=== PATIENT | male | born 2000 | race Caucasian/White ===

== ENCOUNTER 2021-12-26 22:30 | Emergency (ER) | payer BC ==
[2021-12-26] MEDS ORDERED: Famotidine 20 MG TAB ONE (22:59)
[2021-12-26] MEDS ORDERED: predniSONE 20 MG TAB ONE (22:59)
== END 2021-12-27 02:01 | disposition home or self-care (01) ==
LOC: MADERS 22:30
DX: T78.1XXA Other adverse food reactions, not elsewhere classified, initial encounter (principal); L50.9 Urticaria, unspecified
CPT/HCPCS: 99283; J7512